=== PATIENT | male | born 1985 | race Caucasian/White ===

== ENCOUNTER 2017-06-09 23:34 | Emergency (ER) | payer SELFPAY ==
[~2017-06-09] VITALS: Ht 152.4 cm; Wt 95.3 kg
[~2017-06-09 23:34] MED LIST: AMOXICILLIN500 M2 PO; AMOXICILLIN500 MG PO; ANAPROX DS550 MG PO; AUGMENTIN 875875 MG PO; CLARITIN10 MG PO; COMPAZINE10 MG PO; CYCLOBENZAPRINE10 MG PO; FLAGYL500 MG PO; FLEXERIL10 MG PO; FLONASE ALLERG9.9 ML NS; HYDROCODONE BIT1 T11 PO; LOMOTIL 0.025 M1 TA1 PO; MOTRIN800 MG PO; NKHM; PENICILLIN VK500 MG PO; PHENERGAN25 M1 PO; PREDNICOT20 MG PO; ROBITUSSIN AC 10 MG/ PO; SEPTRA DS 800 M1 TAB PO; TRIMOX500 MG PO; VOLTAREN50 M1 PO; WYMOX500 MG PO; ZANTAC150 MG PO; ZITHROMAX Z PA250 MG PO; ZITHROMAX250 MG PO
[2017-06-10] MEDS ORDERED: ULTRAM50 MG PO (00:10)
[2017-06-10] MEDS ORDERED: PENICILLIN-VK500 M1 PO (00:10)
== END 2017-06-10 00:29 | disposition home or self-care (01) ==
LOC: ED 23:34
DX: K04.7 Periapical abscess without sinus (principal)

== ENCOUNTER 2017-08-29 10:57 | Emergency (ER) | payer SELFPAY ==
[~2017-08-29] VITALS: Ht 177.8 cm; Wt 96.2 kg
[~2017-08-29 10:57] MED LIST changes: +PENICILLIN-VK500 M1 PO; +ULTRAM50 MG PO
[2017-08-29] MEDS ORDERED: NAPROSYN500 MG PO (11:15)
[2017-08-29] MEDS ORDERED: PENICILLIN VK500 MG PO (11:15)
[2017-08-29] MEDS ORDERED: Peridex 473 ML473 ML PO (11:15)
== END 2017-08-29 11:38 | disposition home or self-care (01) ==
LOC: ED 10:57
DX: K04.7 Periapical abscess without sinus (principal); I10 Essential (primary) hypertension

== ENCOUNTER 2017-11-20 22:36 | Emergency (ER) | payer SELFPAY ==
[~2017-11-20] VITALS: Ht 177.8 cm; Wt 95.3 kg
[~2017-11-20 22:36] MED LIST changes: +NAPROSYN500 MG PO; +Peridex 473 ML473 ML PO
[2017-11-20 23:11] LABS: BASO % 0.6 % (0.0-1.0); EOS # 0.2 10*3/uL (0.0-0.4); EOS % 2.6 % (1.0-4.0); HEMATOCRIT 43.7 % (42.0-52.0); HEMOGLOBIN 15.2 g/dl (14.0-18.0); LYMPH # 2.2 10*3/uL (1.3-4.4); MEAN CELL VOLUME 85.2 fl (80.0-94.0); MEAN CORPUSCULAR HGB 29.6 pg (27.0-31.0); MEAN CORPUSCULAR HGB CONC 34.8 g/dl (33.0-37.0); MEAN PLATELET VOLUME 9.2 fl (9.6-12.3); MONO # 0.7 10*3/uL (0.1-1.0); MONO % 10.5 % (3.0-9.0); NEUT # 3.4 10*3/uL (2.3-7.9); NEUT % 52.1 % (47.0-73.0); PLATELET COUNT AUTOMATED 238 10*3/uL (130-400); RED BLOOD COUNT 5.13 10*6/uL (4.50-5.90); RED CELL DISTRI WIDTH 12.5 % (0-14.5); WHITE BLOOD COUNT 6.6 10*3/uL (4.8-10.8)
[2017-11-20 23:25] LABS: ALBUMIN 4.4 gm/dl (3.1-4.5); ALKALINE PHOSPHATASE 51 U/L (45-117); BUN 13 mg/dl (7-24); CHLORIDE 103 mmol/L (98-107); CREATININE 1.16 mg/dL (0.70-1.30); LIPASE 72 U/L (73-393); POTASSIUM 3.7 mmol/L (3.5-5.1); SGOT/AST 15 IU/L (3-35); SGPT/ALT 29 U/L (12-78); SODIUM 139 mmol/L (136-145); TOTAL PROTEIN 8.6 gm/dL (6.4-8.2)
[2017-11-20] MEDS ORDERED: ZOFRAN ODT4 MG SL (23:52)
== END 2017-11-21 00:36 | disposition home or self-care (01) ==
LOC: ED 22:36
PROVIDERS: Nurse Practitioner Family
DX: K29.70 Gastritis, unspecified, without bleeding (principal); F10.10 Alcohol abuse, uncomplicated

== ENCOUNTER 2018-03-26 19:43 | Emergency (ER) | payer SELFPAY ==
[~2018-03-26] VITALS: Ht 177.8 cm; Wt 83.9 kg
[~2018-03-26 19:43] MED LIST changes: +ZOFRAN ODT4 MG SL
[2018-03-26 20:03] LABS: BASO % 0.3 % (0.0-1.0); EOS # 0.2 10*3/uL (0.0-0.4); EOS % 1.6 % (1.0-4.0); HEMATOCRIT 43.9 % (42.0-52.0); HEMOGLOBIN 15.5 g/dl (14.0-18.0); LYMPH # 3.3 10*3/uL (1.3-4.4); MEAN CELL VOLUME 85.6 fl (80.0-94.0); MEAN CORPUSCULAR HGB 30.2 pg (27.0-31.0); MEAN CORPUSCULAR HGB CONC 35.3 g/dl (33.0-37.0); MONO # 0.8 10*3/uL (0.1-1.0); NEUT # 4.9 10*3/uL (2.3-7.9); NEUT % 52.9 % (47.0-73.0); PLATELET COUNT AUTOMATED 244 10*3/uL (130-400); RED BLOOD COUNT 5.13 10*6/uL (4.50-5.90); RED CELL DISTRI WIDTH 12.5 % (0-14.5); WHITE BLOOD COUNT 9.3 10*3/uL (4.8-10.8)
[2018-03-26 20:14] LABS: ACT PARTIAL THROMBO TIME 24.6 SECONDS (20.8-31.5)
[2018-03-26 20:20] LABS: ALBUMIN 4.5 gm/dl (3.1-4.5); ALKALINE PHOSPHATASE 49 U/L (45-117); BUN 11 mg/dl (7-24); CHLORIDE 101 mmol/L (98-107); CREATININE 0.99 mg/dL (0.70-1.30); POTASSIUM 3.1 mmol/L (3.5-5.1); SGOT/AST 20 IU/L (3-35); SGPT/ALT 22 U/L (12-78); SODIUM 139 mmol/L (136-145)
[2018-03-26 20:25] LABS: TROPONIN I < 0.015 ng/ml (<0.045)
== END 2018-03-26 22:30 | disposition left against medical advice (07) ==
LOC: ED 19:43
PROVIDERS: Emergency Medicine
DX: R07.89 Other chest pain (principal); G43.909 Migraine, unspecified, not intractable, without status migrainosus

== ENCOUNTER 2019-07-09 19:24 | Emergency (ER) | payer OTHER ==
[~2019-07-09] VITALS: Ht 177.8 cm; Wt 84.4 kg
[2019-07-09 20:41] LABS: BASO % 0.3 % (0.0-1.0); EOS # 0.1 10*3/uL (0.0-0.4); EOS % 0.7 % (1.0-4.0); HEMATOCRIT 40.3 % (42.0-52.0); HEMOGLOBIN 14.4 g/dl (14.0-18.0); LYMPH % 14.2 % (27.0-41.0); MEAN CELL VOLUME 86.3 fl (80.0-94.0); MEAN CORPUSCULAR HGB 30.8 pg (27.0-31.0); MEAN CORPUSCULAR HGB CONC 35.7 g/dl (33.0-37.0); MONO # 0.8 10*3/uL (0.1-1.0); MONO % 12.2 % (3.0-9.0); NEUT # 4.8 10*3/uL (2.3-7.9); NEUT % 72.3 % (47.0-73.0); PLATELET COUNT AUTOMATED 216 10*3/uL (130-400); RED BLOOD COUNT 4.67 10*6/uL (4.50-5.90); RED CELL DISTRI WIDTH 12.1 % (0-14.5); WHITE BLOOD COUNT 6.7 10*3/uL (4.8-10.8)
[2019-07-09 20:57] LABS: ALKALINE PHOSPHATASE 46 U/L (45-117); BUN 12 mg/dl (7-24); CHLORIDE 107 mmol/L (98-107); CREATININE 0.99 mg/dL (0.70-1.30); LIPASE 58 U/L (73-393); POTASSIUM 3.6 mmol/L (3.5-5.1); SGOT/AST 9 IU/L (3-35); SGPT/ALT 18 U/L (12-78); SODIUM 139 mmol/L (136-145); TOTAL PROTEIN 7.6 gm/dL (6.4-8.2)
[2019-07-09] MEDS ORDERED: ZOFRAN4 MG PO (21:28)
== END 2019-07-09 21:30 | disposition home or self-care (01) ==
LOC: ED 19:24
PROVIDERS: Emergency Medicine Emergency Medical Services
DX: K52.9 Noninfective gastroenteritis and colitis, unspecified (principal); F17.200 Nicotine dependence, unspecified, uncomplicated

== ENCOUNTER → 2019-07-12 | Outpatient (CLI) | payer OTHER ==
[~2019-07-12] MED LIST changes: +ZOFRAN4 MG PO
== END | disposition home or self-care (01) ==
LOC: RAD 12:09
DX: Z11.59 Encounter for screening for other viral diseases (principal); M62.830 Muscle spasm of back; M54.41 Lumbago with sciatica, right side; M54.42 Lumbago with sciatica, left side; R20.0 Anesthesia of skin

== ENCOUNTER 2019-12-07 07:27 | Emergency (ER) | payer SELFPAY ==
[~2019-12-07] VITALS: Ht 177.8 cm; Wt 88.5 kg
[2019-12-07] MEDS ORDERED: CEPHALEXIN500 M1 PO (10:01)
[2019-12-07] MEDS ORDERED: POLYSPORIN OINT15 GM T (10:01)
== END 2019-12-07 10:09 | disposition home or self-care (01) ==
LOC: ED 07:27
DX: S61.411A Laceration without foreign body of right hand, initial encounter (principal); W22.8XXA Striking against or struck by other objects, initial encounter; Y93.89 Activity, other specified; Y92.89 Other specified places as the place of occurrence of the external cause; Y99.8 Other external cause status

== ENCOUNTER 2019-12-08 18:25 | Emergency (ER) | payer SELFPAY ==
[~2019-12-08 18:25] MED LIST changes: +CEPHALEXIN500 M1 PO; +POLYSPORIN OINT15 GM T
== END 2019-12-08 19:56 | disposition left against medical advice (07) ==
LOC: ED 18:25
DX: S69.91XA Unspecified injury of right wrist, hand and finger(s), initial encounter (principal); Z53.21 Procedure and treatment not carried out due to patient leaving prior to being seen by health care provider; X58.XXXA Exposure to other specified factors, initial encounter; Y93.89 Activity, other specified; Y92.89 Other specified places as the place of occurrence of the external cause; Y99.8 Other external cause status

== ENCOUNTER 2020-01-06 11:32 | Emergency (ER) | payer SELFPAY ==
[~2020-01-06] VITALS: Ht 177.8 cm; Wt 88.5 kg
[2020-01-06 13:14] LABS: BASO % 0.2 % (0.0-1.0); EOS % 0.3 % (1.0-4.0); HEMATOCRIT 43.3 % (42.0-52.0); LYMPH # 1.4 10*3/uL (1.3-4.4); LYMPH % 14.1 % (27.0-41.0); MEAN CELL VOLUME 84.6 fl (80.0-94.0); MEAN CORPUSCULAR HGB 29.3 pg (27.0-31.0); MEAN CORPUSCULAR HGB CONC 34.6 g/dl (33.0-37.0); MEAN PLATELET VOLUME 9.7 fl (9.6-12.3); MONO # 0.7 10*3/uL (0.1-1.0); MONO % 6.6 % (3.0-9.0); NEUT % 78.4 % (47.0-73.0); PLATELET COUNT AUTOMATED 311 10*3/uL (130-400); RED BLOOD COUNT 5.12 10*6/uL (4.50-5.90); RED CELL DISTRI WIDTH 11.6 % (0-14.5); WHITE BLOOD COUNT 10.2 10*3/uL (4.8-10.8)
[2020-01-06 13:25] LABS: ACT PARTIAL THROMBO TIME 31.3 SECONDS (20.0-32.1); INTERNATIONAL NORM RATIO 1.1 (2.0-3.5)
[2020-01-06 13:29] LABS: ALBUMIN 3.8 gm/dl (3.1-4.5); ALKALINE PHOSPHATASE 56 U/L (45-117); BUN 14 mg/dl (7-24); CHLORIDE 102 mmol/L (98-107); CREATININE 1.21 mg/dL (0.70-1.30); LIPASE 45 U/L (73-393); SGOT/AST 21 IU/L (3-35); SGPT/ALT 21 U/L (12-78); SODIUM 136 mmol/L (136-145); TOTAL PROTEIN 8.7 gm/dL (6.4-8.2)
[2020-01-06 13:30] LABS: TROPONIN I < 0.015 ng/ml (<0.045)
[2020-01-06] MEDS ORDERED: POTASSIUM CHLO20 ME3 PO (13:59)
[2020-01-06] MEDS ORDERED: DOXYCYCLINE100 M3 PO (13:59)
[2020-01-06] MEDS ORDERED: Ondansetron4 MG PO (13:59)
[2020-01-06] MEDS ORDERED: ROBITUSSIN DM 101 OZ PO (13:59)
== END 2020-01-06 14:05 | disposition home or self-care (01) ==
LOC: ED 11:32
PROVIDERS: Nurse Practitioner Family
DX: J18.9 Pneumonia, unspecified organism (principal); E87.6 Hypokalemia; K52.9 Noninfective gastroenteritis and colitis, unspecified; F17.200 Nicotine dependence, unspecified, uncomplicated

== ENCOUNTER 2020-01-10 08:17 | Emergency (ER) | payer SELFPAY ==
[~2020-01-10] VITALS: Ht 177.8 cm; Wt 88.5 kg
[~2020-01-10 08:17] MED LIST changes: +DOXYCYCLINE100 M3 PO; +Ondansetron4 MG PO; +POTASSIUM CHLO20 ME3 PO; +ROBITUSSIN DM 101 OZ PO
[2020-01-10 08:44] LABS: BASO % 0.2 % (0.0-1.0); EOS # 0.1 10*3/uL (0.0-0.4); EOS % 1.6 % (1.0-4.0); HEMATOCRIT 39.9 % (42.0-52.0); HEMOGLOBIN 13.8 g/dl (14.0-18.0); LYMPH # 1.5 10*3/uL (1.3-4.4); LYMPH % 17.9 % (27.0-41.0); MEAN CELL VOLUME 84.5 fl (80.0-94.0); MEAN CORPUSCULAR HGB 29.2 pg (27.0-31.0); MEAN CORPUSCULAR HGB CONC 34.6 g/dl (33.0-37.0); MEAN PLATELET VOLUME 9.5 fl (9.6-12.3); MONO # 0.5 10*3/uL (0.1-1.0); NEUT # 6.2 10*3/uL (2.3-7.9); NEUT % 73.9 % (47.0-73.0); PLATELET COUNT AUTOMATED 364 10*3/uL (130-400); RED BLOOD COUNT 4.72 10*6/uL (4.50-5.90); RED CELL DISTRI WIDTH 11.4 % (0-14.5); WHITE BLOOD COUNT 8.3 10*3/uL (4.8-10.8)
[2020-01-10 08:55] LABS: ACT PARTIAL THROMBO TIME 32.8 SECONDS (20.0-32.1); INTERNATIONAL NORM RATIO 1.1 (2.0-3.5)
[2020-01-10 09:00] LABS: ALBUMIN 3.2 gm/dl (3.1-4.5); ALKALINE PHOSPHATASE 51 U/L (45-117); BUN 10 mg/dl (7-24); CHLORIDE 99 mmol/L (98-107); CREATININE 1.04 mg/dL (0.70-1.30); POTASSIUM 3.1 mmol/L (3.5-5.1); SGOT/AST 18 IU/L (3-35); SGPT/ALT 18 U/L (12-78); SODIUM 134 mmol/L (136-145); TOTAL PROTEIN 8.2 gm/dL (6.4-8.2)
[2020-01-10 09:03] LABS: TROPONIN I < 0.015 ng/ml (<0.045)
[2020-01-10 10:09] LABS: CLARITY CLEAR (CLEAR); COLOR YELLOW (YELLOW)
[2020-01-10 10:10] LABS: BACTERIA TRACE; BILIRUBIN NEGATIVE (NEGATIVE); BLOOD NEGATIVE (NEGATIVE); GLUCOSE NEGATIVE (NEGATIVE); KETONE 2+ (NEGATIVE); LEUKO ESTERASE NEGATIVE (NEGATIVE); NITRITE NEGATIVE (NEGATIVE); PH 6.5 (5.0-9.0); SPECIFIC GRAVITY 1.015 (1.005-1.030); UROBILINOGEN < 0.2 E.U./dl (0.2-1.0); WBC 0-2 wbc/hpf (0-5)
== END 2020-01-10 09:54 | disposition home or self-care (01) ==
LOC: ED 08:17
PROVIDERS: Emergency Medicine
DX: R06.00 Dyspnea, unspecified (principal); E87.6 Hypokalemia; F32.9 Major depressive disorder, single episode, unspecified; Z79.899 Other long term (current) drug therapy

== ENCOUNTER → 2020-01-22 | Outpatient (CLI) | payer SELFPAY | END | disposition home or self-care (01) | LOC: CT 14:42 | DX: R91.8 Other nonspecific abnormal finding of lung field (principal); N20.0 Calculus of kidney ==

== ENCOUNTER → 2020-01-23 | Outpatient (CLI) | payer SELFPAY | END | disposition home or self-care (01) | LOC: LAB 10:52 → RESCLI 10:52 | DX: B97.29 Other coronavirus as the cause of diseases classified elsewhere (principal); J12.89 Other viral pneumonia ==

== ENCOUNTER 2020-11-27 07:30 | Emergency (ER) | payer SELFPAY ==
[~2020-11-27] VITALS: Wt 86.2 kg
[2020-11-27 08:01] LABS: BASO % 0.6 % (0.0-1.0); EOS # 0.3 10*3/uL (0.0-0.4); EOS % 4.2 % (1.0-4.0); HEMATOCRIT 45.8 % (42.0-52.0); LYMPH # 2.8 10*3/uL (1.3-4.4); LYMPH % 41.5 % (27.0-41.0); MEAN CELL VOLUME 84.8 fl (80.0-94.0); MEAN CORPUSCULAR HGB 28.9 pg (27.0-31.0); MEAN CORPUSCULAR HGB CONC 34.1 g/dl (33.0-37.0); MEAN PLATELET VOLUME 9.4 fl (9.6-12.3); MONO # 0.6 10*3/uL (0.1-1.0); MONO % 9.6 % (3.0-9.0); NEUT # 2.9 10*3/uL (2.3-7.9); NEUT % 43.9 % (47.0-73.0); PLATELET COUNT AUTOMATED 289 10*3/uL (130-400); RED CELL DISTRI WIDTH 12.1 % (0-14.5); WHITE BLOOD COUNT 6.7 10*3/uL (4.8-10.8)
[2020-11-27 08:11] LABS: BILIRUBIN Negative (Negative); BLOOD 3+ (Negative); CLARITY Cloudy (Clear); COLOR Yellow (Yellow); GLUCOSE Negative (Negative); KETONE Trace (Negative); LEUKO ESTERASE Negative (Negative); NITRITE Negative (Negative); PH 5.5 (4.5-8.0); SPECIFIC GRAVITY 1.025 (1.001-1.030)
[2020-11-27 08:15] LABS: ALBUMIN 4.1 gm/dl (3.1-4.5); ALKALINE PHOSPHATASE 43 U/L (45-117); BUN 8 mg/dl (7-24); CHLORIDE 107 mmol/L (98-107); CREATININE 1.06 mg/dL (0.70-1.30); LIPASE 116 U/L (73-393); POTASSIUM 3.8 mmol/L (3.5-5.1); SGOT/AST 14 IU/L (3-35); SGPT/ALT 24 U/L (12-78); SODIUM 140 mmol/L (136-145); TOTAL PROTEIN 7.6 gm/dL (6.4-8.2)
[2020-11-27 08:23] LABS: BACTERIA 1+; EPITHELIAL CELLS 0-2; MUCOUS 2+; RBC 51-100 rbc/hpf (0-2)
[2020-11-27] MEDS ORDERED: NAPROSYN500 MG PO (09:31)
[2020-11-27] MEDS ORDERED: REGLAN10 M1 PO (09:31)
[2020-11-27] MEDS ORDERED: FLOMAX0.4 MG PO (09:31)
[2020-11-27] MEDS ORDERED: TYLENOL325 M1 PO (09:31)
== END 2020-11-27 10:00 | disposition home or self-care (01) ==
LOC: ED 07:30
PROVIDERS: Emergency Medicine
DX: N20.0 Calculus of kidney (principal)

== ENCOUNTER 2021-11-26 10:00 | Emergency (ER) | payer SELFPAY ==
[~2021-11-26 10:00] MED LIST changes: +FLOMAX0.4 MG PO; +REGLAN10 M1 PO; +TYLENOL325 M1 PO
[2021-11-26] MEDS ORDERED: PREDNISONE50 MG PO (11:33)
== END 2021-11-26 11:36 | disposition home or self-care (01) ==
LOC: ED 10:00
DX: S39.012A Strain of muscle, fascia and tendon of lower back, initial encounter (principal); X58.XXXA Exposure to other specified factors, initial encounter; Y93.89 Activity, other specified; Y92.89 Other specified places as the place of occurrence of the external cause; Y99.8 Other external cause status

== ENCOUNTER 2021-12-18 08:44 | Emergency (ER) | payer SELFPAY ==
[~2021-12-18 08:44] MED LIST changes: +PREDNISONE50 MG PO
[2021-12-18] MEDS ORDERED: PERCOCET 5-3251 EACH PO (13:43)
[2021-12-18] MEDS ORDERED: CYCLOBENZAPRINE10 MG PO (13:43)
[2021-12-18] MEDS ORDERED: PREDNISONE10 MG PO (13:43)
== END 2021-12-18 14:01 | disposition home or self-care (01) ==
LOC: ED 08:44
DX: S39.012A Strain of muscle, fascia and tendon of lower back, initial encounter (principal); X58.XXXA Exposure to other specified factors, initial encounter; Y93.89 Activity, other specified; Y92.89 Other specified places as the place of occurrence of the external cause; Y99.8 Other external cause status

== ENCOUNTER → 2022-01-05 | Outpatient (CLI) | payer MEDICAID ==
[~2022-01-05] MED LIST changes: +PERCOCET 5-3251 EACH PO; +PREDNISONE10 MG PO
== END | disposition home or self-care (01) ==
LOC: MRI 10:30
PROVIDERS: ATTEND Nurse Practitioner Family
DX: M51.16 Intervertebral disc disorders with radiculopathy, lumbar region (principal); M48.061 Spinal stenosis, lumbar region without neurogenic claudication

== ENCOUNTER 2022-11-08 11:37 | Emergency (ER) | payer MEDICAID ==
[~2022-11-08] VITALS: Wt 81.6 kg
[2022-11-08 12:27] LABS: BASO % 0.2 % (0.0-1.0); EOS % 0.2 % (1.0-4.0); HEMATOCRIT 47.4 % (42.0-52.0); LYMPH # 1.5 10*3/uL (1.3-4.4); LYMPH % 9.3 % (27.0-41.0); MEAN CELL VOLUME 85.3 fl (80.0-94.0); MEAN CORPUSCULAR HGB 29.3 pg (27.0-31.0); MEAN CORPUSCULAR HGB CONC 34.4 g/dl (33.0-37.0); MEAN PLATELET VOLUME 9.1 fl (9.6-12.3); MONO # 1.4 10*3/uL (0.1-1.0); MONO % 8.8 % (3.0-9.0); NEUT # 13.1 10*3/uL (2.3-7.9); NEUT % 81.1 % (47.0-73.0); PLATELET COUNT AUTOMATED 328 10*3/uL (130-400); RED BLOOD COUNT 5.56 10*6/uL (4.50-5.90); RED CELL DISTRI WIDTH 12.2 % (0-14.5); WHITE BLOOD COUNT 16.2 10*3/uL (4.8-10.8)
[2022-11-08 12:44] LABS: ALKALINE PHOSPHATASE 57 U/L (46-116); BUN 14 mg/dl (9-23); CHLORIDE 95 mmol/L (98-107); LIPASE 29 U/L (12-53); POTASSIUM 3.9 mmol/L (3.4-5.1); TOTAL PROTEIN 8.5 gm/dL (6.0-8.0)
[2022-11-08 12:48] LABS: SGPT/ALT < 7 U/L (10-49)
[2022-11-08 13:36] LABS: BILIRUBIN 1+ (Negative); BLOOD Negative (Negative); CLARITY Turbid (Clear); COLOR Red (Yellow); GLUCOSE Negative (Negative); KETONE 1+ (Negative); LEUKO ESTERASE Trace (Negative); NITRITE Positive (Negative); PH 5.5 (4.5-8.0); SPECIFIC GRAVITY >= 1.030 (1.001-1.030)
[2022-11-08 13:53] LABS: MUCOUS 1+; RBC 0-2 rbc/hpf (0-2)
[2022-11-08] MEDS ORDERED: CEPHALEXIN500 M1 PO (14:01)
== END 2022-11-08 14:10 | disposition home or self-care (01) ==
LOC: ED 11:37
PROVIDERS: Nurse Practitioner Family
DX: N39.0 Urinary tract infection, site not specified (principal); Z20.822 Contact with and (suspected) exposure to COVID-19

== ENCOUNTER 2023-02-09 23:50 | Emergency (ER) | payer MEDICAID ==
[~2023-02-09] VITALS: Ht 180.3 cm; Wt 92.1 kg
== END 2023-02-10 03:11 | disposition home or self-care (01) ==
LOC: ED 23:50
DX: S20.212A Contusion of left front wall of thorax, initial encounter (principal); S40.012A Contusion of left shoulder, initial encounter; S60.221A Contusion of right hand, initial encounter; M54.2 Cervicalgia; F32.A Depression, unspecified; Z87.442 Personal history of urinary calculi; E87.6 Hypokalemia; V29.99XA Rider (driver) (passenger) of other motorcycle injured in unspecified traffic accident, initial encounter; Y93.89 Activity, other specified; Y92.239 Unspecified place in hospital as the place of occurrence of the external cause; Y99.8 Other external cause status

== ENCOUNTER 2023-04-23 21:59 | Emergency (ER) | payer MEDICAID ==
[~2023-04-23] VITALS: Wt 77.1 kg
== END 2023-04-23 23:08 | disposition home or self-care (01) ==
LOC: ED 21:59
DX: S92.424A Nondisplaced fracture of distal phalanx of right great toe, initial encounter for closed fracture (principal); F32.A Depression, unspecified; Z87.442 Personal history of urinary calculi; W22.8XXA Striking against or struck by other objects, initial encounter; Y93.55 Activity, bike riding; Y92.410 Unspecified street and highway as the place of occurrence of the external cause; Y99.8 Other external cause status

== ENCOUNTER 2023-06-29 10:44 | Emergency (ER) | payer MEDICAID ==
[~2023-06-29] VITALS: Ht 177.8 cm; Wt 81.6 kg
[2023-06-29] MEDS ORDERED: MELOXICAM15 MG PO (11:52)
== END 2023-06-29 12:09 | disposition home or self-care (01) ==
LOC: ED 10:44
DX: M54.41 Lumbago with sciatica, right side (principal); M79.604 Pain in right leg; F32.A Depression, unspecified; Z87.442 Personal history of urinary calculi

== ENCOUNTER 2023-09-22 06:34 | Emergency (ER) | payer SELFPAY ==
[~2023-09-22] VITALS: Ht 177.8 cm; Wt 81.6 kg
[~2023-09-22 06:34] MED LIST changes: +MELOXICAM15 MG PO
[2023-09-22] MEDS ORDERED: AMOX-CLAV 875-1 EACH PO ×2 (07:03)
== END 2023-09-22 07:11 | disposition home or self-care (01) ==
LOC: ED 06:34
DX: J32.9 Chronic sinusitis, unspecified (principal); F32.A Depression, unspecified; Z87.442 Personal history of urinary calculi; F17.290 Nicotine dependence, other tobacco product, uncomplicated

== ENCOUNTER 2023-09-24 04:28 | Emergency (ER) | payer SELFPAY ==
[~2023-09-24] VITALS: Ht 177.8 cm; Wt 81.6 kg
[~2023-09-24 04:28] MED LIST changes: +AMOX-CLAV 875-1 EACH PO
[2023-09-24 05:01] LABS: URINE AMPHETAMINES Negative (1000ng/ml); URINE BARBITURATES Negative (200ng/ml); URINE BENZODIAZEPINES Negative (200ng/ml); URINE CANNABINOIDS (THC) Positive (50ng/ml); URINE COCAINE Negative (300ng/ml); URINE METHADONE Negative (300ng/ml); URINE OPIATES Negative (300ng/ml); URINE PHENCYCLIDINE Negative (25ng/ml)
[2023-09-24 05:12] LABS: BILIRUBIN Negative (Negative); BLOOD Negative (Negative); CLARITY Clear (Clear); COLOR Yellow (Yellow); GLUCOSE Negative (Negative); KETONE Negative (Negative); LEUKO ESTERASE Negative (Negative); NITRITE Negative (Negative); PH 5.5 (4.5-8.0); SPECIFIC GRAVITY 1.025 (1.001-1.030)
[2023-09-24 05:27] LABS: WBC 0-2 wbc/hpf (0-5)
[2023-09-24 05:28] LABS: RBC 0-2 rbc/hpf (0-2)
[2023-09-24 06:03] LABS: BASO # 0.1 10*3/uL (0.0-0.1); BASO % 0.6 % (0.0-1.0); EOS # 0.2 10*3/uL (0.0-0.4); EOS % 2.5 % (1.0-4.0); HEMATOCRIT 44.6 % (42.0-52.0); LYMPH # 2.7 10*3/uL (1.3-4.4); LYMPH % 31.5 % (27.0-41.0); MEAN CELL VOLUME 86.4 fl (80.0-94.0); MEAN CORPUSCULAR HGB 29.3 pg (27.0-31.0); MEAN CORPUSCULAR HGB CONC 33.9 g/dl (33.0-37.0); MEAN PLATELET VOLUME 9.5 fl (9.6-12.3); MONO # 0.7 10*3/uL (0.1-1.0); MONO % 8.5 % (3.0-9.0); NEUT # 4.8 10*3/uL (2.3-7.9); NEUT % 56.7 % (47.0-73.0); PLATELET COUNT AUTOMATED 292 10*3/uL (130-400); RED BLOOD COUNT 5.16 10*6/uL (4.50-5.90); RED CELL DISTRI WIDTH 12.4 % (0-14.5); WHITE BLOOD COUNT 8.5 10*3/uL (4.8-10.8)
[2023-09-24 06:24] LABS: ALKALINE PHOSPHATASE 40 U/L (46-116); BUN 12 mg/dl (9-23); CHLORIDE 103 mmol/L (98-107); LIPASE 100 U/L (12-53); POTASSIUM 3.2 mmol/L (3.4-5.1); SGPT/ALT 94 U/L (5-49); TOTAL PROTEIN 7.1 gm/dL (6.0-8.0)
[2023-09-24 06:25] LABS: ETHYL ALCOHOL < 3.0 mg/dl (<3)
[2023-09-24 06:29] LABS: ACT PARTIAL THROMBO TIME 27.8 SECONDS (20.0-32.1)
[2023-09-24] MEDS ORDERED: MELOXICAM15 MG PO (06:46)
[2023-09-24] MEDS ORDERED: FLOMAX0.4 MG PO (06:46)
== END 2023-09-24 06:48 | disposition home or self-care (01) ==
LOC: ED 04:28
PROVIDERS: Internal Medicine
DX: N20.1 Calculus of ureter (principal); F32.A Depression, unspecified; R11.0 Nausea; Z79.899 Other long term (current) drug therapy

== ENCOUNTER 2023-11-26 09:42 | Emergency (ER) | payer SELFPAY ==
[~2023-11-26] VITALS: Ht 177.8 cm; Wt 81.6 kg
[2023-11-26] MEDS ORDERED: TIZANIDINE HCL4 MG PO (11:40)
== END 2023-11-26 11:53 | disposition home or self-care (01) ==
LOC: ED 09:42
DX: M54.50 Low back pain, unspecified (principal); F32.A Depression, unspecified; Z87.442 Personal history of urinary calculi; F17.210 Nicotine dependence, cigarettes, uncomplicated

== ENCOUNTER 2023-12-11 07:58 | Emergency (ER) | payer SELFPAY ==
[~2023-12-11] VITALS: Ht 177.8 cm; Wt 81.6 kg
[~2023-12-11 07:58] MED LIST changes: +TIZANIDINE HCL4 MG PO
[2023-12-11] MEDS ORDERED: methylPREDNISolone sod succ 125 MG VIAL IM ONE (08:40)
[2023-12-11] MEDS ORDERED: PREDNISONE50 MG PO (08:41)
== END 2023-12-11 08:55 | disposition home or self-care (01) ==
LOC: ED 07:58
DX: M54.41 Lumbago with sciatica, right side (principal); F32.A Depression, unspecified; Z87.442 Personal history of urinary calculi

== ENCOUNTER 2024-03-09 09:19 | Emergency (ER) | payer MEDICAID ==
[~2024-03-09] VITALS: Ht 177.8 cm; Wt 81.6 kg
== END 2024-03-09 09:55 | disposition home or self-care (01) ==
LOC: ED 09:19
DX: J32.9 Chronic sinusitis, unspecified (principal); F32.A Depression, unspecified; Z87.442 Personal history of urinary calculi

== ENCOUNTER 2024-06-14 20:47 | Emergency (ER) | payer MEDICAID ==
[~2024-06-14] VITALS: Ht 177.8 cm; Wt 81.6 kg
[2024-06-14] MEDS ORDERED: diphenhydrAMINE hydrochloride 50 MG/ML VIAL IV ONE (21:10)
[2024-06-14] MEDS ORDERED: methylPREDNISolone sod succ 125 MG VIAL IV ONE (21:10)
[2024-06-14] MEDS ORDERED: FAMOTIDINE 50 ML IV ONE (21:10)
== END 2024-06-14 21:35 | disposition home or self-care (01) ==
LOC: ED 20:47
DX: T63.441A Toxic effect of venom of bees, accidental (unintentional), initial encounter (principal); R22.0 Localized swelling, mass and lump, head; F32.A Depression, unspecified; Y92.009 Unspecified place in unspecified non-institutional (private) residence as the place of occurrence of the external cause

== ENCOUNTER → 2024-06-24 | Outpatient (CLI) | payer MEDICAID ==
[2024-06-24 11:01] LABS: BASO % 0.4 % (0.0-1.0); EOS # 0.2 10*3/uL (0.0-0.4); EOS % 2.5 % (1.0-4.0); HEMATOCRIT 47.8 % (42.0-52.0); LYMPH # 1.9 10*3/uL (1.3-4.4); LYMPH % 27.8 % (27.0-41.0); MEAN CELL VOLUME 82.4 fl (80.0-94.0); MEAN CORPUSCULAR HGB 26.9 pg (27.0-31.0); MEAN CORPUSCULAR HGB CONC 32.6 g/dl (33.0-37.0); MEAN PLATELET VOLUME 9.2 fl (9.6-12.3); MONO # 0.6 10*3/uL (0.1-1.0); MONO % 8.8 % (3.0-9.0); NEUT # 4.1 10*3/uL (2.3-7.9); NEUT % 60.2 % (47.0-73.0); PLATELET COUNT AUTOMATED 280 10*3/uL (130-400); RED CELL DISTRI WIDTH 12.9 % (0-14.5); WHITE BLOOD COUNT 6.8 10*3/uL (4.8-10.8)
[2024-06-24 11:48] LABS: ALKALINE PHOSPHATASE 60 U/L (46-116); BUN 9 mg/dl (9-23); CHLORIDE 102 mmol/L (98-107); CHOLESTEROL 232 mg/dL (<200); FREE T4 1.26 ng/dl (0.89-1.76); LDL CHOLESTEROL 163 mg/dL (9-159); POTASSIUM 4.2 mmol/L (3.4-5.1); SGPT/ALT 13 U/L (5-49); TOTAL PROTEIN 8.2 gm/dL (6.0-8.0); TRIGLYCERIDES 63 mg/dl (<150)
== END | disposition home or self-care (01) ==
LOC: LAB 10:39
PROVIDERS: ATTEND Internal Medicine
DX: R00.0 Tachycardia, unspecified (principal); R25.2 Cramp and spasm